=== PATIENT | female | born 1970 | race Caucasian/White ===

== ENCOUNTER 2018-07-18 15:28 | Inpatient (IN) | payer OTHER ==
[~2018-07-18] VITALS: Ht 177.8 cm; Wt 62.1 kg
[2018-07-18 15:39] VITALS: BP 139/68
[2018-07-18] MEDS ORDERED: SYNTHROID150 MCG PO (15:43)
[2018-07-18] MEDS ORDERED: LISINOPRIL-HCT1 EACH PO (15:43)
[2018-07-18] MEDS ORDERED: NEXIUM40 MG PO (15:44)
[2018-07-18 16:01] LABS: URINE BILIRUBIN NEGATIVE (Negative); URINE BLOOD 3+ (Negative); URINE CLARITY CLEAR; URINE COLOR YELLOW; URINE GLUCOSE-RANDOM NEGATIVE (Negative); URINE KETONES NEGATIVE (Negative); URINE LEUKOCYTES-REFLEX NEGATIVE (Negative); URINE NITRITE-REFLEX NEGATIVE (Negative); URINE PROTEIN TRACE (Negative); URINE SPECIFIC GRAVITY >= 1.030 (1.005-1.030); URINE UROBILINOGEN 0.2 E.U./dl (0.2-1.0)
[2018-07-18 16:06] LABS: BACTERIA-REFLEX >30 Many /HPF (None Seen); SQUAMOUS >10 Many /LPF (0-3); URINE RBC >20 Many /HPF (0-2); URINE WBC-REFLEX 0-5 Rare /HPF (0-5)
[2018-07-18 16:08] LABS: CASTS None Seen /LPF (None Seen); CRYSTALS None Seen /LPF (None Seen); MUCUS 0-3 Light strn/LPF (None Seen)
[2018-07-18 16:09] LABS: AMP/METHAMP Negative (Negative); BARBITURATES Negative (Negative); BENZODIAZEPINES Negative (Negative); COCAINE Negative (Negative); METHADONE Negative (Negative); OPIATES Negative (Negative); PCP Negative (Negative); THC Negative (Negative)
[2018-07-18 16:09] LABS: ABSOLUTE BASOPHILS 0.1 thou/uL (0.0-0.2); ABSOLUTE EOSINOPHILS 0.2 thou/uL (0.0-0.7); ABSOLUTE MONOCYTES 0.7 thou/uL (0.0-1.2); ABSOLUTE NEUTROPHILS 7.3 thou/uL (1.6-8.1); BASOPHILS 1.4 %; EOSINOPHILS 2.4 %; HEMATOCRIT 40.8 % (37.0-47.0); HEMOGLOBIN 13.5 gm/dL (12.0-15.0); LYMPHOCYTES 19.4 %; MCH 27.1 pg (26.0-34.0); MCV 82.2 fL (80.0-100.0); MONOCYTES 6.5 %; MPV 6.9 fl. (7.2-11.1); NUCLEATED RBCS 0 /100WBC; PLATELET COUNT* 345 thou/uL (150-400); POLYS 70.3 %; RBC 4.97 mil/uL (4.20-5.00); RDW-CV 14.5 % (10.5-14.5); WBC 10.3 thou/uL (4.0-11.0)
[2018-07-18 16:23] LABS: ALBUMIN 3.4 g/dL (3.4-5.0); ALKALINE PHOSPHATASE 102 U/L (46-116); ANION GAP 9 mmol/L (7-16); BUN 14 mg/dL (7-18); CHLORIDE 100 mmol/L (98-107); CO2 29 mmol/L (21-32); CREATININE 0.9 mg/dL (0.6-1.3); GLUCOSE 103 mg/dL (70-99); POTASSIUM 3.5 mmol/L (3.5-5.1); SGOT 38 U/L (15-37); SGPT 32 U/L (30-65); SODIUM 138 mmol/L (136-145); TOTAL BILIRUBIN 0.4 mg/dL (<0.1-1.0); TOTAL PROTEIN 8.1 g/dL (6.4-8.2); TROPONIN-I LEVEL <0.06 ng/mL (<0.06)
[2018-07-18 17:57] VITALS: BP 122/65
[2018-07-18 18:28] VITALS: BP 141/71
--- NOTE | 2018-07-18 18:29 | NUR ---
VSS, ASSUMED CARE IN THE AM, ASSESSMENT PERFORMED AND CHARTED, FALL PRECAYTIONS IN PLACE AND CALL LIGHT IN REACH, PT IS A&O4 ON RA, TRACING SR ON THE MONITOR, PT IS UP WITH STAND BY, PT DENIES ANY PAIN AND WILL FOLLOW WITH PLAN OF CARE.
[2018-07-18 20:00] VITALS: BP 111/59
[2018-07-19] VITALS: BP 90/48
--- NOTE | 2018-07-19 03:56 | NUR ---
pt resting comfortable in bed. tolerated IVF. pt has no c/o dizziness while resting in bed. pt SR on monitor. afebrile and vss.
[2018-07-19 04:00] VITALS: BP 95/54
[2018-07-19 08:00] VITALS: BP 100/46
--- NOTE | 2018-07-19 09:11 | NUR ---
Pt is A&O. Resides at home with her adult dtr. Active and independent, continues to work. No DME. No hx of HH or SNF. Goal is home at dc, no needs anticipated. Following.
[2018-07-19 11:57] VITALS: BP 107/56
[2018-07-19 12:35] LABS: CALCIUM 8.3 mg/dL (8.5-10.1); CREATININE 0.9 mg/dL (0.6-1.3); POTASSIUM 3.6 mmol/L (3.5-5.1); TOTAL BILIRUBIN 0.4 mg/dL (<0.1-1.0); TOTAL PROTEIN 7.4 g/dL (6.4-8.2)
--- NOTE | 2018-07-19 13:09 | EKG ---
[place] [address] ELECTROCARDIOGRAM REPORT Name: ELIEZER MATHIS Room: [address] ADM IN M.R.#: [id number] Admission: 07/18/18 Attend Phys: Alli Gomez Discharge: Date of : 66 Report #: [id number] THIS REPORT FOR: //name// [place] [facility] Test Date: 2018-07-18 Test Time: 15:54:02 Pat Name: ELIEZER MATHIS Department: Room: [facility] Gender: F Invoice Control Clerk: Loraine ROB : 1970 Requested By: Luz Bob Order Number: [id number] MD: Maximino Riddle Measurements Intervals [place] Rate: 78 P: 5 IA: 164 QRS: 8 QRSD: 104 T: 108 QT: 385 QTc: 439 Interpretive Statements Sinus rhythm Borderline repolarization abnormality No previous ECG available for comparison Electronically Signed On 07-19-2018 13:09:16 CDT by Maximino Riddle [email or web address] <ELECTRONICALLY SIGNED> By: Maximino Riddle MD, [facility] 07/19/18 1309 1554 1554 Maximino Riddle MD, FACC /EPI
--- NOTE | 2018-07-19 14:29 | NUR ---
RECIEVED CONSULT FOR POSSIBLE REHAB ADMISSION. CONSULT HAS BEEN ACKNOWLEDGED BY SIMULATION TECHNICIAN AND DR. SMITH. PATIENT ADMITTED FOR DIZZINESS WITH NEW ONSET OF L EAR TINNITUS THAT HAS BEEN WORSENING. CT NEGATIVE, MRI PENDING, NEUROLOGY CONSULT PENDING, PT/OT/ST EVALUATIONS ARE PENDING. WILL FOLLOW ALONG TO SEE RESULTS OF WORKUPS AND THERAPY NEEDS TO DETERMINE IF PATIENT QAULIFIES FOR ACUTE REHAB. THANK YOU FOR THIS CONSULT.
--- NOTE | 2018-07-19 16:25 | 2DMMODE ---
[place] [address] 2 D/M-MODE ECHOCARDIOGRAM Name: ELIEZER MATHIS Room: [address] IN [facility]#: [id number] Admission: 07/18/18 Attend Phys: William Jacques Discharge: Date of : 66 Date of Service: 07/19/18 1625 Report #: [id number] THIS REPORT FOR: //name// APPROVED REPORT Study performed: 07/19/2018 14:21:40 EXAM: Comprehensive 2D, Doppler, and color-flow Echocardiogram Patient Location: In-Patient Room #: [facility] Status: routine BSA: 2.16 HR: 63 bpm BP: 107/56 mmHg Rhythm: NSR Other Information Study Quality: Fair Indications CVA/TIA Echo Enhancing Agent Indication: Rule out Shunt Agent(s) / Amount(s) Used: Agitated Saline 10 cc 2D Dimensions IVSd: 10.40 (7-11mm) LVOT Diam: 19.91 (18-24mm) LVDd: 43.75 mm PWd: 10.47 (7-11mm) Ascending Ao: 29.78 (22-36mm) LVDs: 27.11 (25-40mm) Aortic Root: 28.26 mm Volumes Left Atrial Volume (Systole) LA ESV Index: 24.90 mL/m2 Aortic Valve AoV Peak Dimitri.: 1.25 m/s AO Peak Gr.: 6.30 mmHg LVOT Max P.88 mmHg AO Mean Gr.: 3.69 mmHg LVOT Mean P.55 mmHg LVOT Max V: 1.10 m/s AO V2 VTI: 30.58 cm LVOT Mean V: 0.74 m/s NAOMY (VTI): 2.56 cm2 LVOT V1 VTI: 25.12 [place] [address] 2 D/M-MODE ECHOCARDIOGRAM Name: ELIEZER MATHIS Room: [address] IN .R.#: [id number] Admission: 07/18/18 Attend Phys: William Jacques Discharge: Date of : 66 Date of Service: 07/19/18 1625 Report #: [id number] Mitral Valve E/A Ratio: 1.80 MV Decel. Time: 242.42 ms MV E Max Dimitri.: 0.90 m/s MV PHT: 70.30 ms MVA (PHT): 3.13 cm2 TDI E/Lateral E': 6.43 E/Medial E': 5.63 Medial E' Dimitri.: 0.16 m/s Lateral E' Dimitri.: 0.14 m/s Pulmonary Valve PV Peak Dimitri.: 0.82 m/s PV Peak Gr.: 2.68 mmHg Left Ventricle The left ventricle is normal size. There is normal LV segmental wall motion. There is normal left ventricular wall thickness. Left ventricular systolic function is normal. The left ventricular ejection fraction is within the normal range. LVEF is 55-60%. The left ventricular diastolic function is normal. Right Ventricle The right ventricle is normal size. The right ventricular systolic function is normal. Atria The left atrium size is normal. Interatrial septum is intact without evidence of ASD or PFO. The right atrium size is normal. Aortic Valve The aortic valve is normal in structure. No aortic regurgitation is present. There is no aortic valvular stenosis. Mitral Valve The mitral valve is normal in structure. Trace mitral regurgitation. No evidence of mitral valve stenosis. Tricuspid Valve The tricuspid valve is normal in structure. Trace tricuspid regurgitation. Unable to assess PA pressure. Pulmonic Valve Pulmonic valve is not well visualized. There is no pulmonic [place] [address] 2 D/M-MODE ECHOCARDIOGRAM Name: ELIEZER MATHIS Loraine Room: [address] IN .R.#: [id number] Admission: 07/18/18 Attend Phys: William Jacques Discharge: Date of : 66 Date of Service: 07/19/18 1625 Report #: [id number] Great Vessels The aortic root is normal in size. IVC is not well visualized. Pericardium There is no pericardial effusion. <Conclusion> LVEF is 55-60%. Interatrial septum is intact without evidence of ASD or PFO. <ELECTRONICALLY SIGNED> By: Maximino Riddle MD, [facility] 07/19/18 1625 1625 1625 Maximino Riddle MD, FACC /INF
--- NOTE | 2018-07-19 16:26 | NUR ---
VSS, ASSUMED CARE THIS AM, ASSESSMENT PERFORMED AND CHARTED, NIH 0, PT IS ALERT, FALL PRECAUTION IN PLACE, CALL LIGHT IN REACH, PT USES CALL LIGHT, TRACING SR ON MONITOR, ON RA, GETS UP STANDBY, DENIES PAIN, PT GOAL IS TO COMPLETE MRI TODAY, WORK WITH PT/OT AND REHAB CONSULT, PT IS BEING WORKED UP FOR POSSIBLE TIA/CVA, WILL FOLLOW PLAN OF CARE AND HOURLY ROUNDS
[2018-07-19 16:32] VITALS: BP 125/57
--- NOTE | 2018-07-19 19:57 | NUR ---
PT GIVEN BENADRYL, MECLIZINE, AND PHENERGRAN TO HELP CALM HER DOWN FOR HER MRI. PT LEFT THE UNIT @ 1950.
[2018-07-19 20:00] VITALS: BP 121/73
[2018-07-19 23:06] LABS: GLYCOHEMOGLOBIN (HGB A1C) 5.5 % (4.8-5.6)
--- NOTE | 2018-07-19 23:31 | NUR ---
ASSUMED PT CARE @ 193. PT A+OX4. PT TO GO TO MRI. SCAPALAMINE PATCH REMOVED. PT RETURNED TO UNIT APPROX [id number]. REQUESTED IBUPROFEN. NONE ORDERED. CALLED DR CAAL. INSTRUCTED TO GIVE TYLENOL ONLY. ALSO GAVE MELATONIN FOR SLEEP. PT CURRENTLY RESTING IN BED. CALL LIGHT IN REACH. HOURLY ROUNDS FOR SAFETY.
[2018-07-20 00:15] VITALS: BP 110/49
[2018-07-20 05:28] LABS: CHOLESTEROL 153 mg/dL (<200); HDL CHOLESTEROL 44 mg/dL (>40); LDL CHOLESTEROL 90 mg/dL (<100); TC:HDL 3.5 Ratio (Not establshd); TRIGLYCERIDE 97 mg/dL (<150); VLDL 19 mg/dL (<40)
[2018-07-20 05:31] LABS: SERUM ASSESSMENT Clear
[2018-07-20 08:15] VITALS: BP 128/71
--- NOTE | 2018-07-20 08:21 | NUR ---
ASSUMED PT. CARE AND RECEIVED REPORT AT 0730. PT A/OX4. VSS. PT. REPORTS PAIN IS 4/10, HER "USUAL ACHES DUE TO FIBRO". PT. DENIES WANTING TYLENOL AT THIS TIME. FULL ASSESSMENT COMPLETED, REFER TO CHARTING. PT. AMBULATED TO BATHROOM WITH STBY ASSISTANCE, DENIES DIZZINESS. CALL LIGHT IN REACH, WILL CONTINUE WITH PLAN OF CARE.
--- NOTE | 2018-07-20 08:40 | NUR ---
ASSUMED PT. CARE AND RECEIVED REPORT AT 0730. PT A/OX4, VSS, PT. REPORTS USUAL SHORTNESS OF BREATH ON RA. PT. STATES SHE FEELS JITTERY THIS MORNING AND THE CHANGE IN MEDS LAST NIGHT MADE HER FEEL "DRUNK". SHE CURRENTLY NO LONGER HAS THIS FEELING. FULL ASSESSMENT COMPLETED, REFER TO CHARTING. PT. ALSO REPORTS HEAR A "MAN SING IN HER HEAD". PT. SITTING BEDSIDE, DANGLING FOR BREAKFAST. CALL LIGHT IN REACH, WILL CONTINUE WITH PLAN OF CARE.
[2018-07-20] MEDS ORDERED: ANTIVERT25 MG PO (12:18)
[2018-07-20 12:19] VITALS: BP 128/71
--- NOTE | 2018-07-20 13:00 | NUR ---
DC ORDERS RECEIVED. IV AND MONITOR REMOVED. PT. GIVEN DC INSTRUCTIONS, SCRIPTS, AND CARENOTES. PT. LEFT WITH FAMILY TO RETURN HOME IN PERSONAL VEHICLE, ALL BELONGINGS ACCOUNTED FOR.
--- NOTE | 2018-07-21 14:23 | CON ---
[address] [address] CONSULTATION Name: ELIEEZR MATHIS Room: [address] IN M.R.#: [id number] Admission: 07/18/18 Attend Phys: Alli Gomez Discharge: 07/20/18 Date of : 66 Report #: [id number] THIS REPORT FOR: //name// CC: Marvin Jacques DATE OF SERVICE: 07/19/2018 HISTORY OF PRESENT ILLNESS: This is a 48-year-old female patient who was evaluated by me because she indicated on Thursday she had onset of dizziness and tinnitus on the left ear. Her history is poorly defined, but she said she did not have symptoms like this before. She had some dizziness. She had an MRI done several years ago, she was having some headache that time, but these symptoms are new. She has some mild headache associated with that. When the symptoms were present, she indicated the symptoms were severe. They have mostly resolved now except for some tinnitus. REVIEW OF SYSTEMS: Indicate she has a history of fibromyalgia, gallbladder surgery, hypothyroidism. She does have a history of headache that was long time ago. Otherwise, she is not complaining of any new eye, ENT, cardiac, respiratory, GI, , musculoskeletal, constitutional, dermatological, hematological, psychiatric, throat, allergic symptoms associated with present symptomatology. PAST MEDICAL HISTORY: Positive for dizziness, but they were never so severe. FAMILY HISTORY: Negative for early age stroke. SOCIAL HISTORY: She drinks alcohol only on special occasions. PHYSICAL EXAMINATION: Indicates she is alert, responsive, able to follow simple commands. Her speech, concentration, fund of knowledge and memory is at her baseline. Cranial nerve examination 2-12 looks unremarkable. Strength, sensation, reflexes and tone is symmetrical. There is no meningeal sign. I could not look at the patient's fundus. Her pulses are palpable. She has no edema, cyanosis or jaundice. Cardiac examination is unremarkable. No respiratory difficulty or rhonchi was noticed on either side. She is an obese, but does not have any dysmorphic features of eyes, ears and face. Vision and hearing looks adequate. Blood pressure is 100/46, respiration is 20, pulse is 64, temperature is 97.6. LABORATORY DATA: White count is 10.3, GFR is normal. IMPRESSION: I do not believe there is any neurological etiology for the patient's symptoms. I suspect that other etiologies like ENT etiology are somewhat low blood pressure is more likely to be the [place] [address] CONSULTATION Name: ELIEZER MATHIS Room: [address]#: [id number] Admission: 07/18/18 Attend Phys: Alli Gomez Discharge: 07/20/18 Date of : 66 Report #: [id number] symptoms. However, she does have pretty significant symptoms and we will go ahead and do an MRI in this patient. I discussed with her MRI without contrast. I discussed all the potential side effects of contrast including severe irreversible dermatological problems. She still has periods. We will check a test before that, if the workup is negative, then I think we need to concentrate on systemic workup including ENT workup. <ELECTRONICALLY SIGNED> By: Maykel Harrington MD 07/21/18 1423 1134 [id number] Harrington MD /nt
== END 2018-07-20 12:55 | disposition home or self-care (01) | DRG 149 ==
LOC: M.ERS 15:28 → M.TBA-ER 17:01 → M.2W 17:01
PROVIDERS: Internal Medicine; Physician Assistant; ADMIT Internal Medicine
DX: H81.90 Unspecified disorder of vestibular function, unspecified ear (principal); D68.59 Other primary thrombophilia; E44.0 Moderate protein-calorie malnutrition; Z68.1 Body mass index [BMI] 19.9 or less, adult; H93.12 Tinnitus, left ear; M79.7 Fibromyalgia; I10 Essential (primary) hypertension; K21.9 Gastro-esophageal reflux disease without esophagitis; E06.3 Autoimmune thyroiditis; E11.9 Type 2 diabetes mellitus without complications; Z86.73 Personal history of transient ischemic attack (TIA), and cerebral infarction without residual deficits; Z91.040 Latex allergy status; Z79.899 Other long term (current) drug therapy

== ENCOUNTER → 2021-02-07 | Outpatient (CLI) | payer OTHER ==
[~2021-02-07] MED LIST: ANTIVERT25 MG PO; LISINOPRIL-HCT1 EACH PO; NEXIUM40 MG PO; SYNTHROID150 MCG PO
== END ==
LOC: M.ULTRA 01-30 15:39
PROVIDERS: ATTEND Registered Nurse Diabetes Educator
DX: K76.0 Fatty (change of) liver, not elsewhere classified (principal); N88.8 Other specified noninflammatory disorders of cervix uteri; R93.89 Abnormal findings on diagnostic imaging of other specified body structures; Z90.49 Acquired absence of other specified parts of digestive tract